=== PATIENT | female | born 1940 | race Caucasian/White ===

== ENCOUNTER → 2017-06-28 | Outpatient (CLI) | payer OTHER ==
[~2017-06-28] MED LIST: ASA81BEC PO; CALTRATE 600600 MG PO; FLOMAX0.4 MG PO; NORCO 5-325 TA1 EACH PO; PRILOSEC 20 MG20 MG PO; PROZAC20 MG PO; TOVIAZ8 MG PO; VITAMIN D2000 UNIT PO; VOLTAREN-XR100 MG PO; WELCHOL 625 MG625 M1 PO; ZIAC 2.5/6.252.5 MG PO; ZOCOR40 MG PO
--- NOTE | ~2017-06-28 | EKG ---
[address] [place] [address] ELECTROCARDIOGRAM REPORT Name: ESTELITA ALVES Room #: REG [facility]#: [id number] Admission: 06/28/17 Attend Phys: Migdalia Pedraza MD Discharge: Date of : 42 Report #: [id number] THIS REPORT FOR: //name// [facility] Test Date: 2017-06-28 Test Time: 06:57:26 Pat Name: ESTELITA ALVES Department: Room: Gender: F Senior Gamemaster: SHADY : 1940 Requested By: Migdalia Pedraza Order Number: [id number] MD: Enmanuel Brand Measurements Intervals [place] Rate: 62 P: 24 VT: 189 QRS: 9 QRSD: 101 T: -14 QT: 393 QTc: 399 Interpretive Statements Sinus rhythm Right atrial enlargement Low voltage, precordial leads Nonspecific T abnormalities, inferior leads No previous ECG available for comparison Electronically Signed On 06-28-2017 8:19:22 ENGINE REPAIRER by Enmanuel Brand [email or web address] <ELECTRONICALLY SIGNED> By: Enmanuel Brand MD 06/28/17 [id number] Enmanuel Brand MD /[email or web address]
== END | disposition home or self-care (01) ==
LOC: LITH 06:21
DX: N20.0 Calculus of kidney (principal); E78.00 Pure hypercholesterolemia, unspecified; M10.9 Gout, unspecified; M19.90 Unspecified osteoarthritis, unspecified site; F32.89 Other specified depressive episodes; K21.9 Gastro-esophageal reflux disease without esophagitis; Z90.710 Acquired absence of both cervix and uterus; Z90.49 Acquired absence of other specified parts of digestive tract; Z98.890 Other specified postprocedural states; Z88.8 Allergy status to other drugs, medicaments and biological substances; Z79.899 Other long term (current) drug therapy; Z87.440 Personal history of urinary (tract) infections